=== PATIENT | female | born 1985 | race Caucasian/White ===

== ENCOUNTER → 2019-09-06 | Outpatient (CLI) | payer BC | LOC: COL.RAD 09:45 | DX: K80.20 Calculus of gallbladder without cholecystitis without obstruction (principal) ==

== ENCOUNTER 2019-11-22 06:15 | Day surgery (SDC) | payer BC ==
[~2019-11-22] VITALS: Ht 149.9 cm; Wt 86.2 kg
[2019-11-22 07:23] VITALS: BP 138/92; PULSE 77; TEMP 97.4
[2019-11-22] MEDS ORDERED: ZOFRAN8 MG PO (07:31)
[2019-11-22] MEDS ORDERED: BRINTELLIX20 PO (07:32)
[2019-11-22] MEDS ORDERED: PRILOSEC 20MG20 MG PO (07:34)
[2019-11-22 08:07] VITALS: BP 129/94; PULSE 93; TEMP 97.5
--- NOTE | 2019-11-22 09:43 | NUR ---
Pt returned via cart to [place] [id number] at [id number]. Ambulated to recliner in bay with SBA. VSS-see flowsheet. Tolerated a sprite and pudding. Dr Giraldo in to visit with pt and friend post procedure. IV removed and pressure dressing applied. Discharge teaching completed, verbalized understanding. Taken via wheelchair to private vehicle for discharge home with friend to drive.
[2019-11-22 11:48] VITALS: BP 129/94; PULSE 94
== END 2019-11-22 09:45 | disposition home or self-care (01) ==
LOC: SDCO 06:15
DX: K29.80 Duodenitis without bleeding (principal); K29.30 Chronic superficial gastritis without bleeding; G43.909 Migraine, unspecified, not intractable, without status migrainosus; F17.210 Nicotine dependence, cigarettes, uncomplicated; Z83.3 Family history of diabetes mellitus; Z82.49 Family history of ischemic heart disease and other diseases of the circulatory system; Z80.9 Family history of malignant neoplasm, unspecified; Z88.0 Allergy status to penicillin
CPT/HCPCS: J2250; J3010; J7030

== ENCOUNTER 2020-08-13 06:48 | Day surgery (SDC) | payer BC ==
[~2020-08-13] VITALS: Ht 149.9 cm; Wt 84.0 kg
[~2020-08-13 06:48] MED LIST: BRINTELLIX20 PO; PRILOSEC 20MG20 MG PO; ZOFRAN8 MG PO
[2020-08-13 07:33] VITALS: BP 129/88; PULSE 86; TEMP 98
[2020-08-13] MEDS ORDERED: TROKEND100 PO (07:45)
[2020-08-13] MEDS ORDERED: ULTRAM 50MG TAB50 MG PO (11:32)
[2020-08-13 12:30] VITALS: BP 105/65; PULSE 79; TEMP 98.4
--- NOTE | 2020-08-13 12:30 | NUR ---
TO RM 7 PER CART FROM PACU. DROWSY, BUT ANSWERS QUESTIONS COHERENTLY. EATING ICE CHIPS. DENIES NAUSEA OR VOMITING. C/O "SOME PAIN", BUT DENIES NEED FOR PAIN MED AT THIS TIME.
[2020-08-13 12:42] VITALS: TEMP 98.4
[2020-08-13 12:45] VITALS: BP 102/64; PULSE 84
--- NOTE | 2020-08-13 13:00 | NUR ---
RECEIVED CRACKERS AND SPRITE.
[2020-08-13 13:15] VITALS: BP 99/64; PULSE 77
--- NOTE | 2020-08-13 13:15 | NUR ---
PATIENT RESTING QUIETLY. 02 SATS 94% ON 2L PER NC.
[2020-08-13 13:30] VITALS: BP 105/58; PULSE 81
--- NOTE | 2020-08-13 14:15 | NUR ---
AMBULATED TO BATHROOM. VOIDED AND AMBULATED BACK TO BED
--- NOTE | 2020-08-13 14:30 | NUR ---
RECEIVED DISCHARGE INSTRUCTIONS AND VERBALIZED UNDERSTANDING. DISCONTINUED IV AND INT. DRESSINGS AT INCISIOIN SITES CLEAN DRY INTACT. PATIENT CALLED FRIEND FOR RIDE HOME. PATIENT GETTING DRESSED
--- NOTE | 2020-08-13 15:02 | NUR ---
DISCHARGED PER WC BY NURSING STAFF TO PRIVATE CAR IN CARE OF FRIEND PI[place].
== END 2020-08-13 15:08 | disposition home or self-care (01) ==
LOC: SDCO 06:48
DX: K80.10 Calculus of gallbladder with chronic cholecystitis without obstruction (principal); F32.9 Major depressive disorder, single episode, unspecified; F41.9 Anxiety disorder, unspecified; F17.210 Nicotine dependence, cigarettes, uncomplicated; Z88.8 Allergy status to other drugs, medicaments and biological substances; G43.909 Migraine, unspecified, not intractable, without status migrainosus; K21.9 Gastro-esophageal reflux disease without esophagitis
CPT/HCPCS: J0690; J1100; J1170; J1885; J2405; J2704; J7120